=== PATIENT | male | born 1955 | race Caucasian/White ===

== ENCOUNTER → 2019-03-03 | Day surgery (SDC) | payer OTHER ==
[~2019-03-03] MED LIST: Lactated Ringers 1,000 ML IV SCH; Propofol 200 MG/20 ML SDV IV ONE
--- NOTE | 2019-03-03 11:12 | OR ---
DATE OF OPERATION: 03/03/2019 PREOPERATIVE DIAGNOSIS: SCREENING COLONOSCOPY. POSTOPERATIVE DIAGNOSIS: SCREENING COLONOSCOPY. SURGEON: Matt Han MD PROCEDURE: FULL-LENGTH COLONOSCOPY. ANESTHESIA: MAC. COMPLICATIONS: None. SPECIMEN: None. FINDINGS: 1. Normal full-length colonoscopy. 2. Marginal prep. RECOMMENDATIONS: Followup colonoscopy per ACS guidelines in 10 years. INDICATIONS: The patient was in and it has been over 10 years since his last colonoscopy. Screening exam was ordered. DESCRIPTION OF PROCEDURE: The patient was prepped and draped, placed in the left lateral decubitus position. A lubricated Olympus colonoscope was inserted and easily advanced to the cecum. Direct visualization of the ileocecal valve was accomplished. The patient had a lot of thick stool in the cecal pouch. I was unable to irrigate that out to see the appendiceal orifice. The bowel prep throughout was sporadic. The patient did have a lot of liquid stool with particulate matter. Areas we could suction were accomplished, but some could not just due to the plugging of the scope. Upon withdrawal of the scope throughout the length of the colon, I could find no signs of any polyps, mass, ulceration, bleeding sites, vascular abnormalities, or signs of colitis. The rectal vault was benign, a lot of stool present there as well. Retroflexion showed no perianal lesions. Air was suctioned, scope removed without complication. Given the prep, it is certainly possible that smaller lesions may have been missed. EJ/MAURO /[id number]
== END ==
LOC: CC.SDS 08:09
PROVIDERS: ATTEND Family Medicine
DX: Z12.11 Encounter for screening for malignant neoplasm of colon (principal)
CPT/HCPCS: G0121; J2704; J7120